=== PATIENT | male | born 1945 | race Caucasian/White ===

== ENCOUNTER 2018-07-20 13:00 | Outpatient (CLI) | payer MEDICARE, OTHER | END 2018-07-20 13:01 | disposition home or self-care (01) | LOC: SC 13:00 | PROVIDERS: ATTEND Internal Medicine Pulmonary Disease | DX: G47.33 Obstructive sleep apnea (adult) (pediatric) (principal) | CPT/HCPCS: 99203; G0463; 99212 ==

== ENCOUNTER 2021-08-06 09:33 | Outpatient (CLI) | payer MEDICARE, OTHER ==
[2021-08-06 10:58] VITALS: BP 134/81
--- NOTE | 2021-08-06 10:58 | SLEEP CARE CONSULTATION ---
Information from patient questionnaire entered by Yasmani Littlejohn MA. I have reviewed and concur with the information entered by Yasmani Littlejohn MA. This document represents the service I personally performed and the decisions made by me, Rosa M Jordan MD, [facility]. History of Present Illness Service Date and Time: 08/06/2021 0933 Previous diagnosis: Moderate, Obstructive Sleep Apnea-Hypopnea Syndrome AHI: 2.0 (08/2018 [facility]) Reason for follow up: annual (last seen 2017), other Equipment type: CPAP HPI additional information: Mr. Donnelly returned with his today for follow up of nasal CPAP therapy. He was diagnosed to have moderate obstructive sleep apnea-hypopnea syndrome. The patient went to [facility] for the equipment and was fitted with a nasal mask. He reports using the device nightly and all through the night. The compliance report shows usage in 170 nights out of the past 180 nights, averaging 6.7 hours a night. The > 4 hour compliance rate for the past 180 days is 87%. He complained of no particular problem with the device such as soreness on the face, dry nose, epistaxis, nasal congestion or headache. He thinks that the pressure of 4 - 10 cmH2O is more comfortable than the original 6 12 cmH2O. On the CPAP therapy he notices improvement in his sleep quality, and that he wakes up feeling fresher in the morning and more awake/alert during the day. The [place] Sleepiness Scale score 10. His notices no snore at all. The average residual AHI is 1.7; and air leak, 20 L/min. CPAP Compliance Data - Data Reviewed with Patient Average duration of nightly device use: 6 hours 41 minutes Compliance rate %: 87 Current pressure setting (cmH2O): 4 - 10 Average residual AHI: 1.7 Central apnea: .2 Obstructive apnea: .6 Subjective Initial [place] Sleepiness Scale score: 10 (in 2020) Allergies and Home Medications Drug allergies reviewed: Yes Home medication list reviewed: Yes Review of Systems Review of systems same as previous: Yes Physical Exam Vital signs obtained and entered by: MARGARITA MYERS Blood Pressure: 134/81 (left) Cuff size: wrist Heart Rate: 74 O2 Saturation: 95 (with mask) Height: 5 ft 2 in Weight: 195 lb Body Mass Index: 35.6 BMI Classification: Obese Impression and Plan IMPRESSION: 1. Obstructive Sleep Apnea-Hypopnea Syndrome, moderate, with the patient doing fairly well on nasal CPAP therapy. He has good compliance and significant clinical improvement. The current pressure appears effective and comfortable. Because the CPAP is now older than the useful life of 5 years, I will order the patient a new one and make it an autoCPAP set between 4 and 6 cmH2O (lower to help reduce air leak). PLAN: 1. Prescription made for an autoCPAP, heated humidifier, and related supplies. 2. Try to lose weight 3. Try other masks and nasal pillows, e.g. ResMed N30i mask and P30i nasal pillows. 4. Return for follow up after one month of using the CPAP. Counseling Topics: Weight loss health impact Prescriptions: Auto CPAP Follow up with Sleep Care in: 1-2 months Visit Type: In Office Other Participants: Spouse/Significant Other Time Spent with Patient (minutes): 15 Provider Statement: I spent 100% of the Face to Face Visit with the patient with greater than 50% spent counseling the patient and coordination of care.
== END 2021-08-06 09:34 | disposition home or self-care (01) ==
LOC: SC 09:33
PROVIDERS: ATTEND Internal Medicine Pulmonary Disease
DX: G47.33 Obstructive sleep apnea (adult) (pediatric) (principal); E66.9 Obesity, unspecified; Z68.35 Body mass index [BMI] 35.0-35.9, adult
CPT/HCPCS: 99212; G0463

== ENCOUNTER 2021-10-26 12:42 | Outpatient (CLI) | payer MEDICARE, OTHER ==
--- NOTE | 2021-10-26 13:39 | XRAY Report ---
PROCEDURE: Abdomen 2 View X-Ray INDICATIONS: H/O ABDOMINAL SURGERY TECHNIQUE: 2 views of the abdomen were acquired. COMPARISON: None. FINDINGS: Surgical changes and devices: None. ABDOMEN: Nonobstructive bowel gas pattern. BONES/SOFT TISSUES: Prominent osteophytosis of the bilateral greater trochanters. Endplate osteophyt osis. IMPRESSION: 1.No evidence for acute findings. Reviewed by: Eric Lassiter MD on 10/26/2021 1:38 PM [facility] Approved by: Eric Lassiter MD on 10/26/2021 1:38 PM [facility] Station ID: [id number]
== END 2021-10-26 12:43 | disposition home or self-care (01) ==
LOC: DI.S 12:42
PROVIDERS: ATTEND Nurse Practitioner Family
DX: Z98.890 Other specified postprocedural states (principal)

== ENCOUNTER 2022-09-18 11:26 | Outpatient (CLI) | payer MEDICARE, OTHER ==
--- NOTE | 2022-09-18 12:19 | SLEEP CARE CONSULTATION ---
Information from patient questionnaire entered by Lisseth Atwood. I have reviewed and concur with the information entered by Lisseth Atwood. This document represents the service I personally performed and the decisions made by me, Mikayla Shahid ARNP. History of Present Illness Service Date and Time: 09/18/2022 1126 Previous diagnosis: Moderate, Obstructive Sleep Apnea-Hypopnea Syndrome AHI: 22.3 (08/2018 [facility]) Reason for follow up: annual (LAST SEEN 07/2021) Equipment type: CPAP (ResMed Airsense 10, last updated 10/17/2015) Equipment obtained from: [employer] (would like to change, not happy with service) Mask style: Nasal Mask brand: [employer] (Eson 2) Backup mask available: Yes (old mask) Last cushion change: 2 weeks Prior sleep studies: Yes HPI additional information: CLAUDY PORTER was diagnosed to have moderate, AHI 22.3, obstructive sleep apnea-hypopnea syndrome and returned today for CPAP therapy annual follow-up. CPAP Compliance Data - Data Reviewed with Patient Average duration of nightly device use: 7 hours 26 minutes Compliance rate %: 78 (153/180 days used; 03/22-09/17/2022) Current pressure setting (cmH2O): 4-10 Average residual AHI: 1.9 Central apnea: 0.2 Obstructive apnea: 1.1 Average large leak: 13.2 lpm Subjective Missed days of use due to: reports: illness Patient concerns: reports: air blowing in eyes, mask leak noise, dry mouth, nose, throat. denies: aerophagia, mask discomfort, condensation in mask/hose, nasal congestion, epistaxis Observed to snore while using device: No Current pressure setting perceived as: comfortable On therapy, patient: reports: sleeping better, awakening more refreshed, being more awake and alert during the day, more rested overall. denies: drowsiness while driving Initial [place] Sleepiness Scale score: 10 (in 2020) Current [place] Sleepiness Scale score: 3 (09/18/22) Allergies and Home Medications Drug allergies reviewed: Yes (NKDA) Home medication list reviewed: Yes (no changes) Review of Systems Review of systems same as previous: Yes (no changes) Physical Exam Vital signs obtained and entered by: LISSETH Cote MA Blood Pressure: 118/66 (LEFT ARM) Cuff size: regular Heart Rate: 80 O2 Saturation: 95 Height: 5 ft 2 in Weight: 197 lb 3.2 oz Body Mass Index: 36.1 BMI Classification: Obese Impression and Plan 1. Obstructive Sleep Apnea-Hypopnea Syndrome, moderate, with good treatment compliance and apnea control. On CPAP therapy, the patient has better sleep quality and is more rested overall. Patient states that when he was here last he received an order to update his machine. He has been dealing with [employer] and they for some reason were unable to replace his machine as ordered. He would like to change to a new DME supplier and again order a new machine. His machine was last updated in October 2015, so he is definitely eligible for an updated CPAP. Thus, the CPAP will be updated. The new CPAPs also have a better humidity system which could assist control of patients dryness symptoms. A DWO prescription will be made. Compliance guidelines for new device and follow up discussed. Patient also having issues with his nasal cushion, over the nose, mask that leaks into his eyes and there is some mask leak noises. He states he has to use a large to extra-large mask to cover his nose. He does change his mask every 2 to 3 weeks but still continues to have the air leaking into his eyes. I had Vijay, [employer], come in and fit him with a nasal cushion, DreamWear mask. He felt this was comfortable and will give it a try. If he likes that he can order this mask when ordering new supplies from his new DME. Patient's apnea severity and rationale for treatment to reduce apnea, improve sleep quality and reduce cardiovascular and cerebrovascular events was reviewed. 2. Obesity, unspecified. Currently patients BMI is 36.1. Obesity increases the risk of apnea, CPAP pressure requirements and overall health risks especially cardiovascular and diabetes. Thus patient is advised to lose weight. * Continue auto CPAP pressure at 4-10 cmH2O * Transfer DME * Update machine * Update supplies * Notify me if snoring with mask or feeling that the pressure is too much or too little * Attempt to lose weight * Call this office if any problems using CPAP * Return for follow up one month after obtaining new device, or sooner if concerns arise Mask provided: Yes Counseling Topics: Weight loss health impact Visit Type: In Office Time Spent with Patient (minutes): 23 Provider Statement: I spent 100% of the Face to Face Visit with the patient with greater than 50% spent counseling the patient and coordination of care.
[2022-09-18 12:20] VITALS: BP 118/66
== END 2022-09-18 11:27 | disposition home or self-care (01) ==
LOC: SC 11:26
PROVIDERS: ATTEND Nurse Practitioner Family
DX: G47.33 Obstructive sleep apnea (adult) (pediatric) (principal); E66.9 Obesity, unspecified; Z68.36 Body mass index [BMI] 36.0-36.9, adult
CPT/HCPCS: 99213; G0463; 99212

== ENCOUNTER 2022-11-12 19:32 | Outpatient (CLI) | payer MEDICARE, OTHER | END 2022-11-12 19:33 | disposition home or self-care (01) | LOC: SC 19:32 | PROVIDERS: ATTEND Nurse Practitioner Family | DX: G47.33 Obstructive sleep apnea (adult) (pediatric) (principal); G47.61 Periodic limb movement disorder; Z68.36 Body mass index [BMI] 36.0-36.9, adult | CPT/HCPCS: 95810 ==

== ENCOUNTER 2022-12-20 15:42 | Outpatient (CLI) | payer MEDICARE, OTHER ==
--- NOTE | 2022-12-20 15:14 | SLEEP CARE CONSULTATION ---
Information from patient questionnaire entered by Lisseth Atwood. I have reviewed and concur with the information entered by Lisseth Atwood. This document represents the service I personally performed and the decisions made by , Mikayla Shahid ARNP. History of Present Illness Service Date and Time: 12/20/2022 1500 Initial [place] Sleepiness Scale score: 10 (in 2020) Current [place] Sleepiness Scale score: 6 (12/20/22) Additional HPI information: CLAUDY PORTER returns via video telehealth visit for follow up and results of the recently performed polysomnography. I explained the pathophysiology behind obstructive sleep apnea. Claudy is currently on a CPAP machine with settings at 4-10 cmH2O. He will continue with his CPAP use. Patient does not drink alcohol. Patient was cautioned about risks of drowsy driving until sleepiness symptoms resolve. Patient denies drowsy driving. Sleep Study - Results Type of Sleep Study: Polysomnography (COMPLETED 11/12/22) Prior sleep studies: Yes Polysomnography/Home Sleep Study results: IMPRESSION: The quality of the study is good. The patient had normal sleep efficiency. The sleep architecture was abnormal for sleep fragmentation and reduced amount of time spent in REM and slow wave sleep (N3). Respiratory monitoring showed moderate obstructive sleep apnea-hypopnea (AHI = 17.3) associated with frequent arousals, oxyhemoglobin desaturation and mild hypoxia (mirian oxygen saturation of 84%). The respiratory events occurred mainly during non-supine sleep (supine AHI = 9.5; non-supine = 65.24). Snore was light to loud in intensity. There was moderate periodic leg movement of sleep not contributing to the sleep fragmentation. Cardiac rhythm was normal sinus rhythm without significant arrhythmia. No abnormal behavior (parasomnia) observed during the night. Allergies and Home Medications Known drug allergies: No Drug allergies reviewed: Yes Home medication list reviewed: Yes (no changes) Review of Systems Review of systems same as previous: Yes (no changes) Physical Exam Vital signs obtained and entered by: LISSETH Cote MA Height: 5 ft 2 in (PER PT) Weight: 191 lb (PER PT) Body Mass Index: 34.9 BMI Classification: Obese Impression and Plan 1. Obstructive Sleep Apnea-Hypopnea Syndrome, moderate, with lowest oxygen saturation of 84%. The patient will be continued on the nasal autoCPAP therapy with pressure set at 4-10 cmH2O. Compliance guidelines also reviewed. Patient has received his new machine but has not yet ordered more supplies from [facility], [facility]. We will update them that he is compliant. His initial compliance report showed 83% compliance with 26\30 days used, 8 hours 34 minutes daily use average, pressure set at 4-10 cm H2O and residual AHI at 3.2. Patient's apnea severity and rationale for treatment to reduce apnea, improve sleep quality and reduce cardiovascular and cerebrovascular events was reviewed. 2. Periodic limb movement, moderate, that did not fragment patients sleep. Periodic limb movement of sleep (PLMS) is characterized by episodes of repetitive limb movements that occur during sleep and usually involve the lower limbs. The etiology is unknown. Caffeine can aggravate PLMS and should be avoided. Sleep hygiene methods can also improve sleep as well as lifestyle changes such as regular exercise. Patient was advised that no treatment is needed at this time. If symptoms increase, then further evaluation is indicated. 3. Hypoxemia, mild, with a mirian oxygen saturation of 84% and 18.7 minutes spent under 90%. His baseline oxygen saturation was normal with an average oxygen saturation of 91%. * Continue auto CPAP pressure at 4-10 cmH2O * Notify me if snoring with mask or feeling that the pressure is too much or too little * Call this office if any problems using CPAP * Return for follow up in 1 year, or sooner if concerns arise Counseling Topics: Spare mask, Weight loss health impact Visit Type: Telehealth Video Video Type: Doximity Patient Location: Home Location of Provider: Office Patient agrees and consents to this telehealth visit type: Yes Patient agrees to have their insurance billed: Yes Time Spent with Patient (minutes): 24 Provider Statement: I spent 100% of the Telehealth Video Call with the patient with greater than 50% spent counseling the patient and coordination of care.
== END 2022-12-20 15:43 | disposition home or self-care (01) ==
LOC: SC 15:42
PROVIDERS: ATTEND Nurse Practitioner Family
DX: G47.33 Obstructive sleep apnea (adult) (pediatric) (principal); G47.61 Periodic limb movement disorder; R09.02 Hypoxemia; E66.9 Obesity, unspecified; Z68.34 Body mass index [BMI] 34.0-34.9, adult

== ENCOUNTER 2024-03-08 12:03 | Outpatient (CLI) | payer MEDICARE, OTHER ==
--- NOTE | 2024-03-08 12:11 | SLEEP CARE CONSULTATION ---
Information from patient questionnaire entered by Etienne Atwood. I have reviewed and concur with the information entered by Etienne Atwood. This document represents the service I personally performed and the decisions made by me, Rosa M Jordan MD, [facility]. History of Present Illness Service Date and Time: 03/08/2024 1120 Previous diagnosis: Moderate, Obstructive Sleep Apnea-Hypopnea Syndrome AHI: 22.3 (08/2018 [facility]) Reason for follow up: annual (LAST SEEN 12/2022) Equipment type: CPAP (ResMed Airsense 10, last updated 10/17/2015) Equipment obtained from: [employer] (would like to change, not happy with service) Mask style: Nasal Prior sleep studies: Yes Type of Sleep Study: Polysomnography (COMPLETED 11/12/22) HPI additional information: Mr. Donnelly [facility] today for an annual follow up of the nasal CPAP therapy. He was diagnosed to have moderate obstructive sleep apnea-hypopnea syndrome. The patient went to [employer] for the equipment and was fitted with a nasal mask. He reports using the ResMed AirSense 11 nightly and all through the night. The compliance report shows usage in 334 nights out of the past 365 nights, averaging 8.1 hours a night. The > 4 hour compliance rate for the past 180 days is 86%. He com plained of no particular problem with the device such as soreness on the face, dry nose, epistaxis, nasal congestion or headache. He thinks that the pressure of 4 - 10 cmH2O is more comfortable than the original 6 12 cmH2O. On the CPAP therapy he notices improvement in his sleep quality, and that he wakes up feeling fresher in the morning and more awake/alert during the day. His notices no snore at all. The average residual AHI is 3.7; and air leak, 9.8 L/min. Sleep Study - Results Type of Sleep Study: Polysomnography (COMPLETED 11/12/22) Prior sleep studies: Yes CPAP Compliance Data - Data Reviewed with Patient Average duration of nightly device use: 8HRS 3MINS Compliance rate %: 86 (03/05/23-03/03/24) Current pressure setting (cmH2O): 4-10 Average residual AHI: 3.7 Subjective Initial [place] Sleepiness Scale score: 10 (in 2020) Current [place] Sleepiness Scale score: 6 (03/08/24) Allergies and Home Medications Drug allergies reviewed: Yes Home medication list reviewed: Yes Review of Systems Review of systems same as previous: Yes ([facility]) Physical Exam Vital signs obtained and entered by: ETIENNE Cote MA Height: 5 ft 2 in (PER PT) Weight: 190 lb (PER PT) Body Mass Index: 34.7 BMI Classification: Obese Impression and Plan IMPRESSION: 1. Obstructive Sleep Apnea-Hypopnea Syndrome, moderate, with the patient doing fairly well on nasal CPAP therapy. He has good compliance and significant clinical improvement. The current pressure appears effective and comfortable. No adjustment is necessary today. PLAN: 1. Prescription made for an autoCPAP, heated humidifier, and related supplies. 2. Try to lose weight 3. Try other masks and nasal pillows, e.g. ResMed N30i mask and P30i nasal pillows. 4. Return for follow up after one month of using the CPAP. Follow up with Sleep Care in: 1 year Visit Type: Telehealth Video Video Type: [place] Patient Location: Home Location of Provider: Home Patient agrees and consents to this telehealth visit type: Yes Patient agrees to have their insurance billed: Yes Time Spent with Patient (minutes): 15 Provider Statement: I spent 100% of the Telehealth Video Call with the patient with greater than 50% spent counseling the patient and coordination of care.
== END 2024-03-08 12:04 | disposition home or self-care (01) ==
LOC: SC 12:03
PROVIDERS: ATTEND Internal Medicine Pulmonary Disease
DX: G47.33 Obstructive sleep apnea (adult) (pediatric) (principal); E66.9 Obesity, unspecified; Z68.34 Body mass index [BMI] 34.0-34.9, adult